=== PATIENT | male | born 1990 | race Caucasian/White ===

== ENCOUNTER 2022-06-08 01:34 | Emergency (ER) | payer OTHER ==
[~2022-06-08] VITALS: Ht 170.2 cm; Wt 77.1 kg
--- NOTE | 2022-06-08 01:50 | NUR ---
BIBGF C/O LAC TO RIGHT EYEBROW, HEMATOMA TO FOREHEAD. NO ACTIVE BLEEDING NOTED. PT A/OX4. TOLERATING R/A WELL WITH NO SOB; RESP EVEN AND NON LABORED. PT AMBULATORY WITH STEADY GAIT. SAFETY MEASURES IN PLACE.
--- NOTE | 2022-06-08 01:54 | NUR ---
DR. DEIRDRE WYLIE AT PT'S BEDSIDE
--- NOTE | 2022-06-08 01:55 | NUR ---
EMT AT PT'S BEDSIDE FOR WOUNDCARE TO LAC TO R EYESAMIW
--- NOTE | 2022-06-08 02:23 | NUR ---
PT TAKEN TO CT VIA W/C
--- NOTE | 2022-06-08 02:31 | NUR ---
PT RETURNED TO ER BED [address]
--- NOTE | 2022-06-08 03:41 | NUR ---
Patient discharged to home in stable condition with vicenta. Written and verbal after care instructions given. Patient verbalizes understanding of instruction. PT ambulatory with a steady gait
[2022-06-08 03:47] VITALS: BP 127/75
== END 2022-06-08 03:48 | disposition home or self-care (01) ==
LOC: ER 01:44
DX: S00.81XA Abrasion of other part of head, initial encounter (principal); F10.129 Alcohol abuse with intoxication, unspecified; W18.09XA Striking against other object with subsequent fall, initial encounter; Y93.89 Activity, other specified; Y92.89 Other specified places as the place of occurrence of the external cause; Y99.8 Other external cause status; Y90.9 Presence of alcohol in blood, level not specified
CPT/HCPCS: 70450-TC